=== PATIENT | female | born 1965 | race Two or more races ===

== ENCOUNTER 2021-05-02 14:08 | Inpatient (IN) | payer OTHER ==
[2021-05-02] MEDS ORDERED: SODIUM CHLORIDE 0.9% 500 ML INFUS.BAG IV ONE (14:58)
[2021-05-02 15:56] LABS: VENOUS BASE EXCESS -6.7 mmol/L (-2-2); VENOUS O2 SATURATION 62.4 % (70-80); VENOUS PCO2 42.7 mmHg (38-52); VENOUS PH 7.283 (7.310-7.410)
[2021-05-02 15:58] LABS: EPI CELLS 4 /uL (0-25.1); HYALINE CASTS 1 /uL (0-3.1); URINE APPEARANCE CLEAR; URINE BACTERIA 8 /uL (0-1359); URINE BILIRUBIN NEGATIVE (NEGATIVE); URINE COLOR YELLOW; URINE GLUCOSE (UA) 3+ (NEGATIVE); URINE KETONE 4+ (NEGATIVE); URINE LEUK ESTERASE NEGATIVE (NEGATIVE); URINE NITRITE NEGATIVE (NEGATIVE); URINE PROTEIN TRACE (NEGATIVE); URINE RBC 2 /uL (0-23.9); URINE UROBILINOGEN 0.2 mg/dL (0.2-1.0); URINE WBC 1 /uL (0-25.8)
[2021-05-02 16:00] LABS: BASO % 0.5 % (0-2.0); EOS % 0.5 % (0-4.5); HEMOGLOBIN 15.8 GM/dL (10.7-15.3); LYMPH % 20.3 % (8-40); MCH 29.2 pg (25.7-33.7); MCHC 34.4 g/dl (32.0-36.0); MEAN CELL VOLUME 84.9 fl (80-96); MEAN PLT VOLUME 9.1 fl (7.5-11.1); MONO % 8.8 % (3.8-10.2); NEUT % 69.9 % (42.8-82.8); PLATELET COUNT 279 10^3/uL (134-434); RBC 5.42 M/mm3 (3.60-5.2); RDW 13.8 % (11.6-15.6)
[2021-05-02 16:31] LABS: CHLORIDE 98 mmol/L (98-107); SODIUM 133 mmol/L (136-145)
[2021-05-02 16:33] LABS: ALBUMIN 4.5 g/dl (3.4-5.0); ANION GAP 16 MMOL/L (8-16); BLOOD UREA NITROGEN 13.8 mg/dL (7-18); CALCIUM 9.5 mg/dL (8.5-10.1); CO2 19 mmol/L (21-32)
[2021-05-02 16:36] LABS: CREATININE 1.1 mg/dL (0.55-1.3); SGOT/AST 10 U/L (15-37); SGPT/ALT 31 U/L (13-61)
[2021-05-02 16:38] LABS: BILIRUBIN,TOTAL 0.6 mg/dL (0.2-1)
[2021-05-02 16:39] LABS: ALK PHOS 84 U/L (45-117)
[2021-05-02 17:00] LABS: GLUCOSE,RANDOM 483 mg/dL (74-106)
[2021-05-02] MEDS ORDERED: INSULIN REGULAR HUMAN 100 UNITS/ML *VIAL IVPUSH ONE ×2 (17:08→17:18)
[2021-05-02] MEDS ORDERED: INSULIN REGULAR HUMAN 100 UNITS/ML *VIAL ONE (17:34)
[2021-05-02] MEDS: SODIUM CHLORIDE 1,000 ML IV SCH (21:00)
[2021-05-02] MEDS: ATORVASTATIN CA 10 MG TABLET (FP) PO SCH (21:10)
[2021-05-02] MEDS ORDERED: ATORVASTATIN CA 10 MG TABLET (FP) ONE (21:17)
[2021-05-02] MEDS ORDERED: INSULIN SLIDING SCALE (NOVOLOG) 1 VIAL SQ SCH (22:00)
[2021-05-02 23:44] VITALS: BMI 25.8
[2021-05-03] MEDS: INSULIN SLIDING SCALE (NOVOLOG) 1 VIAL SQ SCH ×4 (06:17→21:22)
[2021-05-03] MEDS: LATANOPROST 0.005% OPHTH SOLN 2.5ML BOTTLE OU SCH ×2 (06:30→21:23)
[2021-05-03] MEDS: SODIUM CHLORIDE 1,000 ML IV SCH ×3 (06:43→21:23)
[2021-05-03] MEDS ORDERED: INSULIN SLIDING SCALE (NOVOLOG) 1 VIAL SQ SCH (07:00)
[2021-05-03 08:19] LABS: BASO % 0.5 % (0-2.0); EOS % 1.7 % (0-4.5); HEMATOCRIT 36.8 % (32.4-45.2); INR 1.1 (0.83-1.09); MCH 30.1 pg (25.7-33.7); MCHC 35.5 g/dl (32.0-36.0); MEAN PLT VOLUME 9.4 fl (7.5-11.1); MONO % 10.5 % (3.8-10.2); NEUT % 53.3 % (42.8-82.8); PLATELET COUNT 219 10^3/uL (134-434); PROTHROMBIN TIME (PATIENT) 13.3 SEC (9.7-13.0); RBC 4.33 M/mm3 (3.60-5.2); RDW 13.8 % (11.6-15.6); WHITE BLOOD COUNT 5.3 K/mm3 (4.0-10.0)
[2021-05-03 08:22] LABS: ACTIVATED PTT 24.9 SECONDS (25.2-36.5)
[2021-05-03 08:32] LABS: BLOOD UREA NITROGEN 8.5 mg/dL (7-18)
[2021-05-03 08:34] LABS: CREATININE 0.7 mg/dL (0.55-1.3)
[2021-05-03] MEDS: ENOXAPARIN NA (PORCINE) 40 MG/0.4 ML DISP.SYRIN SQ SCH (09:07)
[2021-05-03] MEDS: LISINOPRIL 10 MG TABLET PO SCH (09:07)
[2021-05-03] MEDS: amLODIPine BESYLATE 5 MG TABLET (FP) PO SCH (09:07)
[2021-05-03] MEDS ORDERED: INSULIN (LEVEMIR) 100 UNITS/ML UNITS SQ SCH (10:00)
[2021-05-03] MEDS ORDERED: INSULIN (NOVOLOG) ASPART 100 UNITS/ML 10ML VIAL ONE (20:55)
[2021-05-03] MEDS: ATORVASTATIN CA 10 MG TABLET (FP) PO SCH (21:22)
[2021-05-03] MEDS: INSULIN (LEVEMIR) 100 UNITS/ML UNITS SQ SCH (21:22)
[2021-05-04] MEDS: SODIUM CHLORIDE 1,000 ML IV SCH ×2 (01:41→09:30)
[2021-05-04] MEDS: INSULIN (LEVEMIR) 100 UNITS/ML UNITS SQ SCH (06:38)
[2021-05-04] MEDS: metFORMIN HCL 500 MG TABLET (FP) PO SCH ×2 (06:38→16:50)
[2021-05-04] MEDS: INSULIN SLIDING SCALE (NOVOLOG) 1 VIAL SQ SCH ×3 (06:39→16:24)
[2021-05-04] MEDS: ENOXAPARIN NA (PORCINE) 40 MG/0.4 ML DISP.SYRIN SQ SCH (09:26)
[2021-05-04] MEDS: amLODIPine BESYLATE 5 MG TABLET (FP) PO SCH (09:26)
[2021-05-04] MEDS: LISINOPRIL 10 MG TABLET PO SCH (09:26)
[2021-05-04 10:43] LABS: HEMATOCRIT 38.6 % (32.4-45.2); HEMOGLOBIN 13.3 GM/dL (10.7-15.3); MCH 29.4 pg (25.7-33.7); MCHC 34.6 g/dl (32.0-36.0); MEAN CELL VOLUME 85.1 fl (80-96); MEAN PLT VOLUME 9.4 fl (7.5-11.1); PLATELET COUNT 250 10^3/uL (134-434); RBC 4.53 M/mm3 (3.60-5.2); RDW 13.9 % (11.6-15.6); WHITE BLOOD COUNT 4.9 K/mm3 (4.0-10.0)
[2021-05-04 10:51] LABS: BLOOD UREA NITROGEN 8.9 mg/dL (7-18)
[2021-05-04 10:52] LABS: CALCIUM 8.1 mg/dL (8.5-10.1); MAGNESIUM 1.8 mg/dL (1.8-2.4)
[2021-05-04 10:55] LABS: CREATININE 0.7 mg/dL (0.55-1.3); PHOSPHOROUS 3.5 mg/dL (2.5-4.9)
[2021-05-04 10:56] LABS: BILIRUBIN,TOTAL 0.4 mg/dL (0.2-1)
[2021-05-04 11:03] LABS: ALBUMIN 3.2 g/dl (3.4-5.0); TOT PROT 5.8 g/dl (6.4-8.2)
[2021-05-04 14:48] VITALS: BP 153/85; PULSE 65; TEMP 98.5
[2021-05-05] MEDS ORDERED: INSULIN (LEVEMIR) 100 UNITS/ML UNITS SQ SCH (07:00)
== END 2021-05-04 18:17 | disposition home or self-care (01) | DRG 420 ==
LOC: JER 14:08 → JERBED 17:08 → J6S 21:56
PROVIDERS: ADMIT Internal Medicine; ATTEND Internal Medicine
DX: E11.00 Type 2 diabetes mellitus with hyperosmolarity without nonketotic hyperglycemic-hyperosmolar coma (NKHHC) (principal); I10 Essential (primary) hypertension; E78.5 Hyperlipidemia, unspecified; H40.9 Unspecified glaucoma; E11.65 Type 2 diabetes mellitus with hyperglycemia
CPT/HCPCS: 36415; 80048; 80053; 81003; 82010; 82803; 82962; 83036; 83735; 84100; 85025; 85027; 85610; 85730; 86337; 86341; 93005; 93010; 99285-25; C9803; U0003; U0005

== ENCOUNTER 2021-09-18 13:14 | Emergency (ER) | payer OTHER ==
[2021-09-18 13:44] VITALS: BMI 27.3
[2021-09-18] MEDS ORDERED: IBUPROFEN 600 MG TABLET (FP) PO ONE ×2 (15:17→15:19)
[2021-09-18] MEDS ORDERED: SODIUM CHLORIDE 1,000 ML IV STA (16:14)
[2021-09-18 16:16] LABS: BASO % 0.6 % (0-2.0); EOS % 1.1 % (0-4.5); HEMATOCRIT 40.7 % (32.4-45.2); HEMOGLOBIN 13.9 GM/dL (10.7-15.3); LYMPH % 16.2 % (8-40); MCH 29.1 pg (25.7-33.7); MCHC 34.1 g/dl (32.0-36.0); MEAN CELL VOLUME 85.3 fl (80-96); MEAN PLT VOLUME 8.5 fl (7.5-11.1); MONO % 16.1 % (3.8-10.2); PLATELET COUNT 213 10^3/uL (134-434); RBC 4.77 M/mm3 (3.60-5.2); RDW 14.1 % (11.6-15.6); WHITE BLOOD COUNT 7.4 K/mm3 (4.0-10.0)
[2021-09-18 16:38] LABS: ALBUMIN 3.9 g/dl (3.4-5.0); CALCIUM 9.8 mg/dL (8.5-10.1)
[2021-09-18 16:39] LABS: BLOOD UREA NITROGEN 13.4 mg/dL (7-18)
[2021-09-18 16:42] LABS: CREATININE 0.8 mg/dL (0.55-1.3)
[2021-09-18 16:43] LABS: BILIRUBIN,TOTAL 0.4 mg/dL (0.2-1); TOT PROT 6.9 g/dl (6.4-8.2)
[2021-09-18 17:40] VITALS: BP 128/74; PULSE 79; TEMP 98.7
[2021-09-19 23:07] LABS: SARS-CoV-2 NAA Detected (Not Detected)
== END 2021-09-18 18:01 | disposition home or self-care (01) ==
LOC: JER 13:14
PROC: 3E0337Z Introduction of Electrolytic and Water Balance Substance into Peripheral Vein, Percutaneous Approach (ICD-10-PCS; principal; 2021-09-18)
DX: U07.1 COVID-19 (principal); R51.9 Headache, unspecified; M79.10 Myalgia, unspecified site
CPT/HCPCS: 36415; 80053; 82962; 85025; 93005; 93010; 99284-25; C9803; U0003; U0005